=== PATIENT | male | born 1940 | race Caucasian/White ===

== ENCOUNTER 2019-05-20 01:21 | Emergency (ER) | payer MEDICARE, BC ==
[~2019-05-20] VITALS: Ht 172.7 cm; Wt 74.8 kg
[2019-05-20 01:48] VITALS: BP 139/71
[2019-05-20] MEDS ORDERED: TDAP [DIPH/PERTUSSIS/TET] 0.5 ML VIAL IM ONE (02:31)
[2019-05-20] MEDS: TDAP [DIPH/PERTUSSIS/TET] 0.5 ML VIAL IM ONE (02:33)
--- NOTE | 2019-05-20 02:34 | NUR ---
Patient discharged to home in stable condition. Written and verbal after care instructions given. Patient verbalizes understanding of instruction. Pt ambulatory with a steady gait
== END 2019-05-20 02:37 | disposition home or self-care (01) ==
LOC: ER 01:21
DX: S01.112A Laceration without foreign body of left eyelid and periocular area, initial encounter (principal); S09.8XXA Other specified injuries of head, initial encounter; I10 Essential (primary) hypertension; I25.10 Atherosclerotic heart disease of native coronary artery without angina pectoris; Z95.5 Presence of coronary angioplasty implant and graft; Z60.2 Problems related to living alone; W18.39XA Other fall on same level, initial encounter; Y93.89 Activity, other specified; Y92.89 Other specified places as the place of occurrence of the external cause; Y99.8 Other external cause status
CPT/HCPCS: 90715

== ENCOUNTER 2019-12-23 02:06 | Emergency (ER) | payer MEDICARE, BC ==
[~2019-12-23] VITALS: Ht 172.7 cm; Wt 68.0 kg
--- NOTE | 2019-12-23 02:06 | NUR ---
PT BIB SELF C/O FACIAL SWELLING SINCE YESTERDAY S/P CLEARING SHRUB IN [place] PER PT, PT IS AAOX4, NOT IN RESPIRATORY DISTRESS ,V/S STABLE, KEPT RESTED AND COMFORTABLE, WILL CONTINUE TO MONITOR.
--- NOTE | 2019-12-23 02:25 | NUR ---
SEEN AND EXAMINED BY .
[2019-12-23] MEDS ORDERED: FAMOTIDINE (20 MG) 20 MG TABLET PO ONE (02:30)
[2019-12-23] MEDS ORDERED: diphenhydrAMINE HCL 50 MG/ML VIAL IM ONE (02:30)
[2019-12-23] MEDS ORDERED: predniSONE 50 MG TABLET PO ONE (02:30)
[2019-12-23] MEDS ORDERED: FAMOTIDINE (20 MG) 20 MG TABLET ONE (02:31)
[2019-12-23] MEDS ORDERED: diphenhydrAMINE HCL 50 MG/ML VIAL ONE (02:31)
[2019-12-23] MEDS ORDERED: predniSONE 20 MG TABLET ONE (02:32)
[2019-12-23 03:55] VITALS: BP 122/68
--- NOTE | 2019-12-23 03:55 | NUR ---
Patient discharged to home in stable condition. Written and verbal after care instructions given. Patient verbalizes understanding of instruction.
== END 2019-12-23 03:56 | disposition home or self-care (01) ==
LOC: ER 02:07
DX: T78.49XA Other allergy, initial encounter (principal); I10 Essential (primary) hypertension; I25.10 Atherosclerotic heart disease of native coronary artery without angina pectoris; E11.9 Type 2 diabetes mellitus without complications; Z60.2 Problems related to living alone; Z95.818 Presence of other cardiac implants and grafts; X58.XXXA Exposure to other specified factors, initial encounter
CPT/HCPCS: 96372; 99283; J1200; J7512